=== PATIENT | male | born 2005 | race Caucasian/White ===

== ENCOUNTER 2023-08-08 23:10 | Emergency (ER) | payer MEDICAID, SELFPAY ==
[2023-08-08 23:11] VITALS: BP 143/78; PULSE 75; RESP 16; TEMP 36.6; O2SAT 100; BMI 36.8
--- NOTE | 2023-08-08 23:20 | ED_ITS ---
Discharge Plan Disposition Patient Disposition: Home, Self-Care Referrals Follow up/Referrals: Lyla Roldan APRN [Primary Care Provider] - See instructions Activity Restrictions/Add. Instructions Additional Instructions/Restrictions: Please take 1 g of Tylenol and 600 MG of ibuprofen every 6 hours as needed for pain. Please use lidocaine patches as needed. Please follow-up with your primary care provider. Please return to the emergency department if you develop any new or worsening symptoms or become concerned for your health. Your x-ray showed a small bony cyst on your foot. Recommend following up with your orthopedic surgeon as needed. Clinical Impressions Clinical Impression: Acute pain of left foot, Bone cyst of left foot Discharge ED Provider: Quentin Steward General Adult HPI General Chief complaint: PAIN Stated complaint: left foot pain Time Seen by Provider: 08/08/23 23:20 History of Present Illness HPI narrative: 18-year-old male with history of multiple surgeries on his right foot, most recently approximately 4 weeks ago, presents with left foot pain. He reports pain is primarily in the distal foot on the medial aspect. He reports that he has sometimes been walking on his left foot and bearing his whole weight on it given he is nonweightbearing on the right foot. He denies any other trauma. He denies any fevers chills or systemic symptoms. He denies any other chronic medical conditions. He reports that he has been told he might have gout in the past but has never been formally diagnosed. There is no family history of gout. Related Data Allergies Allergy/AdvReac Type Severity Reaction Status Date / Time No Known Allergies Allergy Verified 08/08/23 23:54 [facility] Disclaimer: The information contained in this section may have been updated after the patient was seen, as this information can be updated by other users. Social History Smoking Status: Current every day smoker alcohol intake: never current occupational status: other Travel in the last 8 weeks: None ROS Obtained: Yes All systems reviewed & no additional complaints except as documented Physical Exam General General appearance: alert and in no apparent distress Head Head exam: atraumatic and normocephalic Eye Eye exam: Present normal appearance, PERRL and EOMI ENT ENT exam: Present normal oropharynx and normal external ear exam Neck Neck exam: Present normal inspection and full ROM Chest Chest inspection: Present normal inspection and symmetric chest wall rise; Absent tenderness Respiratory Respiratory exam: Present normal lung sounds bilaterally; Absent respiratory distress Cardiovascular Cardiovascular exam: Present regular rate and normal rhythm Abdominal Exam Abdominal exam: Present soft; Absent distention, tenderness or guarding Extremities Exam Extremities exam: Present other (Right ankle: Well-healing surgical incision, nontender. Left foot: Tenderness to palpation of the great toe, first joint, first metatarsal, and midfoot more generally. No significant swelling, no evidence of cellulitis) Back Exam Back exam: Present normal inspection; Absent tenderness Neurological Exam Neurological exam: Present alert and oriented X3; Absent motor sensory deficit Psychiatric Psychiatric exam: Present normal affect and normal mood Skin Skin exam: Present warm, dry and normal color Lymphatic Lymphatic Findings: no adenopathy Medical Decision Making Medical Records Medical records reviewed: Yes I reviewed the patient's medical records. Sanya Inquiry Pt receiving controlled substance: No Sanya was queried for this patient: No Vital Signs: 08/08/23 23:11 08/08/23 23:23 08/09/23 00:37 Temperature 97.8 F 98.2 F Temperature Source Oral Oral Pulse Rate 65 65 Pulse Rate [Left] 75 Respiratory Rate 16 14 14 Blood Pressure 102/62 L 102/52 L Blood Pressure [Right Arm] 143/78 H Blood Pressure Mean [Right Arm] 99 Blood Pressure Source [Right Arm] Automatic Cuff Blood Pressure Position [Right Arm] Sitting 02 Sat by Pulse Oximetry 100 99 Oxygen Delivery Method Room Air Room Air Room Air Lab Data Lab results reviewed: Yes I reviewed the patient's lab results. Orders (Tests/Meds): ED MEDICATIONS Discontinued Medications Generic Name Dose Route Start Last Admin Trade Name Blaise PRN Reason Stop Dose Admin Acetaminophen 1,000 mg 08/08/23 23:40 08/08/23 23:57 Acetaminophen 500mg Tab PO 08/08/23 23:41 1,000 mg ONCE ONE Administration Ketorolac Tromethamine 30 mg 08/08/23 23:40 08/08/23 23:56 Ketorolac 30mg/Ml Vial IM 08/08/23 23:41 30 mg ONCE ONE Administration Lidocaine 1 each 08/08/23 23:40 08/08/23 23:57 Lidocaine 5% Transdermal Patch TP 08/08/23 23:41 1 each ONCE ONE Administration Methocarbamol 500 mg 08/08/23 23:40 08/08/23 23:58 Methocarbamol 500mg Tablet PO 08/08/23 23:41 500 mg ONCE ONE Administration ORDERS Category Date Time Status Foot XR left minimum 3 views [XR foot LT min 3V] Stat Exams 08/08/23 23:40 Completed Medical Decision Narrative: 18-year-old male, history of recent right foot surgery, has been nonweightbearing on right foot, presents with a couple days of left foot pain. History was obtained interactive discussion with patient, family. On arrival, patient is [afebrile, hemodynamically stable, satting appropriately, alert, oriented x4, GCS 15], moving all extremities spontaneously. Full physical exam performed and significant for tenderness over the right medial foot and midfoot, no swelling of the joint, no overlying cellulitis or signs of infection Differential includes but is not limited to fracture, dislocation, sprain, septic joint, gout. I do not have any significant concern for septic joint given history and exam. Patient's reported history of possible gout is a consideration, however, given its current appearance and his age I think this is significantly less likely. Patient was given IM Toradol, p.o. Tylenol, lidocaine patch for symptomatic management and correction of underlying abnormalities. Workup initiated including radiographs of the left foot.. On re-evaluation, patient [remains afebrile, HD stable.] Sleeping comfortably, pain significantly improved Imaging independently interpreted by me and significant for benign bone cyst in the foot in the area where patient is complaining of pain. See radiology read for full review of final results. Blood work joint aspiration was considered, but deemed unnecessary due to history and physical exam. Given patient history, exam and workup, patient's presentation most likely represents musculoskeletal/ligamentous strain of the foot secondary to overuse injury in the setting of patient being nonweightbearing of the upper extremity for the last 4 weeks. Low concern for emergent pathology at this time. Patient was discharged stable condition with instructions regarding [id number] pain medications. Patient was discharged with lidocaine patch. Return precautions given. Recommended patient follow-up with his Ortho regarding his bone cyst if his foot continues to give him trouble. Procedures Risk/Benefits of Procedure(s) Were Explained: Yes Critical Care Critical Care Time Critical Care Time: No
[2023-08-08 23:23] VITALS: BP 102/62; PULSE 65; RESP 14; O2SAT 99
--- NOTE | 2023-08-08 23:40 | XR_ITS ---
PROCEDURE INFORMATION: Exam: XR Left Foot Exam date and time: 08/08/2023 11:46 PM Age: 18 years old Clinical indication: Pain; Foot; Left; Additional info: Foot pain, PT C/O pain on top of foot TECHNIQUE: Imaging protocol: Radiologic exam of the left foot. Views: 3 or more views. Total images: 3 COMPARISON: No relevant prior studies available. FINDINGS: Bones/joints: No acute fracture or joint dislocation. No concerning bone lesions or calcifications. Joint spaces are well maintained. 9 mm benign thin walled cystic bone lesion base of the proximal phalanx great toe. Soft tissues: Unremarkable soft tissues. IMPRESSION: 1. Negative left foot. 2. 9 mm benign thin walled cystic bone lesion proximal phalanx great toe.
[2023-08-08] MEDS: KETOROLAC 30MG/ML VIAL 30 MG IM (23:56)
[2023-08-08] MEDS: ACETAMINOPHEN 500MG TAB 1000 MG PO (23:57)
[2023-08-08] MEDS: LIDOCAINE 5% TRANSDERMAL PATCH 1 EACH TP (23:57)
[2023-08-08] MEDS: METHOCARBAMOL 500MG TABLET 500 MG PO (23:58)
[2023-08-09 00:37] VITALS: BP 102/52; PULSE 65; RESP 14; TEMP 36.8; O2SAT 98
== END 2023-08-09 00:42 | disposition home or self-care (01) ==
PROVIDERS: Emergency Provider Emergency Medicine; PCP Nurse Practitioner
DX: M85.672 Other cyst of bone, left ankle and foot (principal); M79.672 Pain in left foot
CPT/HCPCS: 73630; 96372; 99283